=== PATIENT | female | born 1980 | race Caucasian/White ===

== ENCOUNTER 2017-10-11 15:11 | Emergency (ER) | payer MEDICAID | END 2017-10-11 21:31 | disposition home or self-care (01) | LOC: D.ER 15:11 | DX: A64 Unspecified sexually transmitted disease (principal); F17.200 Nicotine dependence, unspecified, uncomplicated ==

== ENCOUNTER 2019-02-24 06:56 | Emergency (ER) | payer OTHER ==
[~2019-02-24] VITALS: Ht 170.2 cm; Wt 63.6 kg
[2019-02-24] MEDS ORDERED: MACROBID100 MG PO (07:00)
[2019-02-24 07:01] VITALS: Ht 170.2 cm; Wt 63.6 kg
[2019-02-24] MEDS ORDERED: IBUPROFEN800 MG PO (08:18)
[2019-02-24] MEDS ORDERED: AUGMENTIN 875-11 TAB PO (08:18)
[2019-02-24] MEDS ORDERED: CYCLOBENZAPRINE10 MG PO (08:18)
[2019-02-24] MEDS ORDERED: ACETAMINOPHEN500 M1 PO (08:18)
[2019-02-24] MEDS ORDERED: DIFLUCAN150 MG PO (08:18)
[2019-02-24 09:45] VITALS: BP 100/73
== END 2019-02-24 09:45 | disposition home or self-care (01) ==
LOC: D.ER 06:56
DX: S61.411A Laceration without foreign body of right hand, initial encounter (principal); W26.0XXA Contact with knife, initial encounter; Y93.89 Activity, other specified; Y92.019 Unspecified place in single-family (private) house as the place of occurrence of the external cause